=== PATIENT | female | born 1945 | race Caucasian/White ===

== ENCOUNTER → 2020-12-10 12:30 | Outpatient (CLI) | payer MEDICARE, BC, SELFPAY ==
--- NOTE | 2020-12-10 | DI.MRI.S_ITS ---
PROCEDURE: MR SHOULDER RT W CON INDICATIONS: Pain in right shoulder TECHNIQUE: After the administration of 12 mL of dilute intra-articular Gadolinium contrast, oblique coronal T1 and T2 spin echo with fat saturation, oblique sagittal T1 spin echo with and without fat saturation, oblique sagittal T2 fast spin echo with fat saturation, axial T1 spin echo with fat saturation through the shoulder. COMPARISON: [facility], , [place] SHOULDER INJECTION MR/CT RT, 12/10/2020, 13:07. FINDINGS: Image quality: Excellent. Rotator cuff: There is moderate supraspinatus tendinosis with superimposed low-grade partial bursal-sided and intrasubstance tearing at the distal footprint measuring 3 mm in anterior-posterior dimension. There is moderate infraspinatus tendinosis. The teres minor tendon is intact. There is low-grade intrasubstance tearing in the subscapularis tendon at the superior insertion. There is no significant rotator cuff muscle atrophy. Mild edema is seen in the medial aspect of the supraspinatus muscle, compatible with a low-grade strain. Bones and bursae: No acute trabecular bone injury. Mild degenerative spurring is seen in the glenoid rim. No full-thickness cartilage defect is seen. There is mild acromioclavicular joint osteoarthrosis. No intra-articular loose body is seen. There is trace subacromial/subdeltoid bursal fluid. Capsule and soft tissues: The labrum appears intact. The long head of the biceps tendon demonstrates normal location and morphology. There is partial effacement of the normal fat in the rotator interval. The anterior band of the inferior glenohumeral ligament appears thickened and mildly hyperintense. IMPRESSION: 1. Low-grade partial bursal sided intrasubstance tearing of the supraspinatus tendon at the mid footprint measuring 3 mm in anterior-posterior dimension. Findings are superimposed on moderate supraspinatus and infraspinatus tendinosis. Mild edema in the medial supraspinatus muscle is compatible with a low-grade strain. 2. Low-grade partial intrasubstance tearing of the subscapularis tendon at the superior insertion superimposed on mild tendinosis. 3. Mild acromioclavicular joint osteoarthrosis. 4. Trace subacromial/subdeltoid bursal effusion or bursitis. 5. Partial effacement of the rotator interval fat and mild thickening of the inferior glenohumeral ligament are nonspecific, but can be seen in the setting of the clinical syndrome of adhesive capsulitis. Dictated by: Adolfo Phillips M.D. on 12/10/2020 at 14:43 Approved by: Adolfo Phillips M.D. on 12/10/2020 at 14:54
--- NOTE | 2020-12-10 | DI.RAD.S_ITS ---
PROCEDURE: [place] SHOULDER INJECTION MR/CT RT INDICATIONS: Pain in right shoulder COMPARISON: None. TECHNIQUE: The indications, alternatives, benefits, risks, and complications of the procedure were explained to the patient. Written informed consent was obtained and placed in the chart. The shoulder was examined fluoroscopically and a site for needle placement chosen for entry into the glenohumeral joint from an anterior approach. The skin was prepped and draped in a sterile fashion, and 1% lidocaine infiltrated from skin down to joint capsule. A spinal needle was inserted into the glenohumeral joint, and a small amount of iodinated contrast media injected to confirm intra-articular placement of the needle tip. This was followed by approximately 12 mL dilute solution of a gadolinium containing MR contrast agent. The needle was removed and a dressing was applied. The patient was given postprocedural instructions and sent to the MR suite for MR imaging. FINDINGS: A single fluoroscopic spot image demonstrates intra-articular location of injected iodinated contrast. IMPRESSION: Successful fluoroscopically guided administration of dilute Gadolinium solution into the shoulder joint for MR arthrogram. Dictated by: Gagan Rivera M.D. on 12/10/2020 at 13:45 Approved by: Gagan Rivera M.D. on 12/10/2020 at 13:45
== END ==
PROVIDERS: PCP Internal Medicine; Referring Provider Orthopaedic Surgery; Visit Provider Orthopaedic Surgery
DX: S46.011A Strain of muscle(s) and tendon(s) of the rotator cuff of right shoulder, initial encounter (principal); S46.811A Strain of other muscles, fascia and tendons at shoulder and upper arm level, right arm, initial encounter; M19.011 Primary osteoarthritis, right shoulder; M75.51 Bursitis of right shoulder
CPT/HCPCS: 23350; 73222; 77002

== ENCOUNTER → 2021-07-11 14:08 | Outpatient (CLI) | payer MEDICARE, OTHER, SELFPAY ==
--- NOTE | 2021-07-11 | DI.MRI.S_ITS ---
PROCEDURE: MR HEAD/BRAIN WO CON INDICATIONS: Other amnesia TECHNIQUE: Non-contrast axial T1 spin echo, axial T2 fast spin echo, sagittal and axial FLAIR, coronal T2 fast spin echo, axial gradient echo, axial diffusion and ADC through the brain. COMPARISON: None. FINDINGS: Image quality: Excellent. CSF spaces: Ventricles appear symmetric in size and shape. Basal cisterns are patent. No extra-axial fluid collections. Brain: No intracranial bleeds or mass effects. There is cerebral volume loss for age. There are periventricular and deep white matter chronic small vessel ischemic changes. Brainstem appears normal. Diffusion-weighted images show no acute ischemic insults. No chronic ischemic insults. Normal intravascular flow voids are present. There are scattered areas of small susceptibility artifact on the gradient echo pulse sequence. Skull and face: Calvarial bone marrow is normal in signal. Orbits are normal. Sinuses: Sinuses and mastoids are clear. IMPRESSION: Diffuse small white matter changes, probably represent chronic microvascular ischemic disease, versus statistically less likely demyelination or other infectious, inflammatory, neurodegenerative etiology, technically nonspecific. Scattered areas of susceptibility artifact seen bilaterally raising possibility of amyloid angiopathy. Dictated by: Keith Rosales M.D. on 07/11/2021 at 15:08 Approved by: Keith Rosales M.D. on 07/11/2021 at 15:15
== END ==
PROVIDERS: PCP Internal Medicine; Referring Provider Internal Medicine; Visit Provider Internal Medicine
DX: R41.3 Other amnesia (principal)
CPT/HCPCS: 70551

== ENCOUNTER 2021-11-25 09:30 | Outpatient (RCR) | payer MEDICARE, BC, SELFPAY ==
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
--- NOTE | 2021-07-08 13:05 | ST.OPTN ---
Visit Care Team Role Provider Type David Freitas MD Attending Provider Non-Staff Primary Care Provider Referring Provider Address: [address] [place] [address], #[facility], [place], [address] PARQUET FLOOR LAYER'S HELPER Treatment Note PARQUET FLOOR LAYER'S HELPER Treatment Note Start: 02/18/21 13:46 Freq: Status: Active Protocol: Document 07/08/21 12:56 CARO (Rec: 07/08/21 13:05 CARO [id number]) Speech Pathology Treatment Note Visit Type Note Type Administrative Note Subjective Observations/Patient Presentation Received voice message from the pt requesting to resume therapy. She was last seen 03/26. Gap in therapy was d/t busyness of pt's schedule. Request for renewed orders was sent to Dr. Freitas today. Will resume therapy upon receipt of updated orders. Voice and email messages were sent to the patient today to inform. Chief Complaint(s) Cognitive
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
--- NOTE | 2022-01-27 17:02 | ST-OP ANOTE ---
Physical, Occupational & Speech Therapy At [facility] Speech Therapy Admin Note Pt did not show for appt. INTEGRATION AIDE called and LVM. No further sessions are scheduled. Schedulers have attempted to call and schedule with the pt and also LVM.
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
== END 2022-02-17 12:15 ==
LOC: SP 09:30
PROVIDERS: PCP Internal Medicine; Referring Provider Internal Medicine; Visit Provider Internal Medicine
DX: G31.84 Mild cognitive impairment of uncertain or unknown etiology (principal)
CPT/HCPCS: 92507; 96105; 97129; 97130

== ENCOUNTER → 2023-03-31 11:58 | Outpatient (CLI) | payer MEDICARE, OTHER, SELFPAY ==
[2023-03-31 21:15] LABS: Appearance Urine UA CLEAR; Bilirubin Urine UA NEGATIVE (NEGATIVE); Color Urine UA YELLOW; Glucose Urine UA NEGATIVE (Negative); Ketones Urine UA NEGATIVE (NEGATIVE); Leukocyte Esterase Urine UA NEGATIVE (NEGATIVE); Nitrite Urine UA NEGATIVE (Negative); Occult Blood Urine UA TRACE-INTACT (Negative); Protein Urine UA NEGATIVE (Negative); Urobilinogen Urine UA 0.2 E.U./dL (0.2)
[2023-03-31 21:23] LABS: RBC Urine 0-1/HPF (0-5/HPF); WBC Urine 0-1/HPF (0-5/HPF)
[2023-03-31 21:24] LABS: Amorphous Sediment Urine 1+; Bacteria Urine None Seen; Culture Indicated Urine Cult Not Indicated; Renal Epithelial Cells Urine 0-1/HPF (0-1/HPF); Squamous Epithelial Cell Urine None Seen (0-5/HPF)
== END ==
PROVIDERS: PCP Internal Medicine; Visit Provider Internal Medicine
DX: R35.0 Frequency of micturition (principal)
CPT/HCPCS: 81001

== ENCOUNTER → 2023-05-20 13:21 | Outpatient (CLI) | payer MEDICARE, OTHER, SELFPAY ==
--- NOTE | 2023-05-20 13:24 | DI.MRI.S_ITS ---
PROCEDURE: MR HEAD/BRAIN WO CON INDICATIONS: CEREBRAL AMYLOID ANGLOPATHY/DEMENTIA TECHNIQUE: Non-contrast axial T1 spin echo, axial T2 fast spin echo, sagittal and axial FLAIR, coronal T2 fast spin echo, axial gradient echo, axial diffusion and ADC through the brain. COMPARISON: [facility], MR, MR HEAD/BRAIN WO CON, 07/11/2021, 14:39. FINDINGS: Image quality: Excellent. CSF spaces: Ventricles appear symmetric in size and shape. Basal cisterns are patent. No extra-axial fluid collections. Brain: No intracranial bleeds or mass effects. There is cerebral volume loss for age. There are severe periventricular and deep white matter chronic small vessel ischemic changes. Brainstem appears normal. Diffusion-weighted images show no acute ischemic insults. No chronic ischemic insults. Normal intravascular flow voids are present. Again seen are scattered small foci of susceptibility artifact throughout the brain parenchyma. Skull and face: Calvarial bone marrow is normal in signal. Orbits are normal. Sinuses: Sinuses and mastoids are clear. IMPRESSION: 1. Again seen are scattered areas of susceptibility artifact throughout the brain parenchyma, this may represent sequela from prior chronic hypertensive microhemorrhages versus mild cerebral amyloid angiopathy. 2. Age-related global volume loss and severe chronic microvascular ischemic changes. 3. No acute intracranial abnormalities. Dictated by: Man Holder M.D. on 05/20/2023 at 15:07 Approved by: Man Holder M.D. on 05/20/2023 at 15:10
== END ==
PROVIDERS: PCP Internal Medicine; Referring Provider Psychiatry & Neurology Neurology; Visit Provider Psychiatry & Neurology Neurology
DX: E85.4 Organ-limited amyloidosis (principal); I68.0 Cerebral amyloid angiopathy; F03.90 Unspecified dementia, unspecified severity, without behavioral disturbance, psychotic disturbance, mood disturbance, and anxiety; R40.4 Transient alteration of awareness
CPT/HCPCS: 70551